=== PATIENT | female | born 1965 | race African-American/Black ===

== ENCOUNTER 2016-09-27 10:38 | Emergency (ER) | payer OTHER ==
[2016-09-27 10:44] VITALS: BP 141/67; PULSE 79; TEMP 98.2; BMI 28.3
[2016-09-27] MEDS ORDERED: KETOROLAC TROMETHAMINE 60 MG/2 ML VIAL IM ONE (11:20)
[2016-09-27] MEDS ORDERED: KETOROLAC TROMETHAMINE 60 MG/2 ML VIAL ONE (11:23)
--- NOTE | 2016-09-27 12:04 | PDOC ---
History of Present Illness - General Chief Complaint: Injury Stated Complaint: LT ANKLE PAIN Time Seen by Provider: 09/27/16 10:50 - History of Present Illness Initial Comments: 09/27/16 11:38 Pt is a 50 y/o female with a PMH of psoriasis, who presents to [facility] [employer] today complaining of L ankle pain after falling at work. She states that she was walking when she slipped on a wet flood and rolled her left ankle. She was able to catch herself and denies hitting her head or LOC. Denies left hip or left knee pain. Admits to pain in the affected ankle and rates her pain a 10/10. She denies weakness in the foot, numbness or tingling, loss of sensation in the foot. Past History - Past Medical History Allergies/Adverse Reactions: Allergies Allergy/AdvReac Type Severity Reaction Status Date / Time No Known Allergies Allergy Verified 09/27/16 10:43 Home Medications: Ambulatory Orders Ibuprofen 800 mg PO TID #21 tablet 09/27/16 Other medical history: denies - Psycho/Social/Smoking Cessation Hx Suicidal Ideation: No Smoking History: Never smoked Information on smoking cessation initiated: No Hx Alcohol Use: No Drug/Substance Use Hx: No Substance Use Type: None *Physical Exam - Vital Signs Last Vital Signs Temp Pulse Resp BP Pulse Ox 98.2 F 79 18 141/67 99 09/27/16 10:42 09/27/16 10:42 09/27/16 10:42 09/27/16 10:42 09/27/16 10:42 - Physical Exam Comments: 09/27/16 11:43 GENERAL: AAOx3, In mild distress sitting in a wheel chair, breathing easily MUSCULOSKELETAL Decreased range of motion in all movements of the L ankle. Tenderness to palpation of the lateral malleolus, and over the navicular bone. No tenderness to palpation of the calf or L knee. Strength 4/5 on L ankle with dorsiflextion and extension. Normal range of motion for all other joints. No bony deformities. EXTREMITIES: Pulses 2+ DP, PT. No cyanosis. No clubbing. No edema. No calf tenderness. SKIN: Psoriasis on the feet. Warm and dry. Normal capillary refill. No jaundice. NEUROLOGICAL: Alert, awake, appropriate. No deficits to light touch and temperature in upper extremities or lower extremities. No motor deficits in the in face, upper extremities and lower extremities. Normoreflexic in the upper and lower extremities. Normal speech. Toes are down-going bilaterally. Gait is normal without ataxia. ED Treatment Course - RADIOLOGY Radiology Studies Ordered: Category Date Time Status ANKLE & FOOT-LEFT* [RAD] Stat Radiology 09/27/16 11:18 Ordered - Medications Given in the ED: ED Medications Discontinued Medications Generic Name Dose Route Start Last Admin Trade Name Sagrario PRN Reason Stop Dose Admin Ketorolac Tromethamine 60 mg 09/27/16 11:20 09/27/16 11:28 Toradol Injection - IM 09/27/16 11:21 60 mg ONCE ONE Administration Medical Decision Making - Medical Decision Making 09/27/16 12:05 X-ray ordered to evaluate for ankle fracture given exam. Toradol given for pain control 09/27/16 20:35 X-ray shows no evidence of acute fracture. Ankle sprain. Pt. given an karli wrap and air cast. Pt. improved with torodol and support wraps. Pt. ready for discharge and pt understands discharge instructions. *DC/Admit/Observation/Transfer Diagnosis at time of Disposition: Ankle sprain Qualifiers: Encounter type: initial encounter Involved ligament of ankle: unspecified ligament Laterality: left Qualified Code(s): S93.402A - Sprain of unspecified ligament of left ankle, initial encounter - Discharge Dispostion Disposition: HOME Condition at time of disposition: Stable Admit: No - Prescriptions Prescriptions: Ibuprofen 800 mg PO TID #21 tablet - Patient Instructions Printed Discharge Instructions: DI for Ankle Sprain Additional Instructions: You have a sprained ankle. Your x-ray today does not show any broken bones. Keep the ankle wrapped with an KARLI wrap, and in the air cast. Wear shoes with good ankle support (ex, sneakers with good arch support). Ice the joint for 20 minute intervals with 20 minutes rest period in between 3-4 times a day to decrease the swelling of the ankle. Elevate your ankle while sitting. You also have crutches to keep the weight off of the foot. Ibuprofen was sent to your pharmacy. Take 1 800mg pill three times a day for one week. Follow up with your PCP in one week. - Post Discharge Activity Work/School Note: Back to Work
== END 2016-09-27 12:29 | disposition home or self-care (01) ==
LOC: JERFT 10:38
PROC: 2W3MX1Z Immobilization of Left Lower Extremity using Splint (ICD-10-PCS; principal; 2016-09-27)
DX: S93.402A Sprain of unspecified ligament of left ankle, initial encounter (principal); W01.0XXA Fall on same level from slipping, tripping and stumbling without subsequent striking against object, initial encounter; Y93.89 Activity, other specified; Y92.128 Other place in nursing home as the place of occurrence of the external cause; Y99.0 Civilian activity done for income or pay
CPT/HCPCS: 73610-TC-LT; 73630-TC-LT; 99281-25